=== PATIENT | female | born 1955 | race Two or more races ===

== ENCOUNTER → 2023-03-08 | Outpatient (CLI) | payer OTHER ==
[2023-03-08 09:46] LABS: Albumin 3.7 g/dL (3.4-5.0); Calcium 9.2 mg/dL (8.5-10.1); Potassium 4.4 mmol/L (3.5-5.1); Uric Acid 4.3 mg/dL (2.6-6.0)
[2023-03-08 09:50] LABS: BUN/Creatinine Ratio 23.4 (10.0-20.0); Bilirubin, Total 0.6 mg/dL (0.2-1.0); Total Protein 7.3 g/dL (6.4-8.2)
[2023-03-08 11:42] LABS: Urine Bacteria NONE SEEN /hpf (None Seen); Urine Blood 2+ /uL (Negative); Urine Mucus FEW (None Seen); Urine Specific Gravity 1.025 (1.001-1.035); Urine WBC 40 /hpf (0 - 5)
[2023-03-08 14:38] LABS: Hematocrit 36.3 % (36.0-46.0); Hemoglobin 12.3 g/dL (12.2-16.2); Mean Corpuscular Hemoglobin 31.5 pg (28.0-32.0); Mean Corpuscular Hgb Conc. 33.8 g/dL (32.0-36.0); Mean Corpuscular Volume 93.3 fL (80.0-100.0); Red Blood Cells 3.89 10^6/uL (4.0-5.20); Red Cell Distribution Width 13.9 % (11.8-14.3); White Blood Cell 7.4 10^3/uL (4.4-10.8)
[2023-03-08 14:41] LABS: Eosinophils % (auto) 0.6 % (0.0-7.0); Lymphocytes % (auto) 20.1 % (10.0-50.0); Monocytes % (auto) 8.5 % (0.0-12.0)
[2023-03-08 14:42] LABS: Basophils # (auto) 0.1 10 ^3/uL (0-0.2); Basophils % (auto) 0.8 % (0.0-2.0); Eosinophils # (auto) 0 10 ^3/uL (0-0.8); Lymphocytes # (auto) 1.4 10 ^3/uL (0.4-5.4); Monocytes # (auto) 0.6 10 ^3/uL (0-1.3); Nucleated Red Blood Cells % 0.2 %
== END | disposition home or self-care (01) ==
LOC: LAB 08:50
PROVIDERS: ATTEND Family Medicine
DX: Z12.11 Encounter for screening for malignant neoplasm of colon (principal); Z12.4 Encounter for screening for malignant neoplasm of cervix; Z00.01 Encounter for general adult medical examination with abnormal findings; E55.9 Vitamin D deficiency, unspecified; R74.8 Abnormal levels of other serum enzymes; F33.42 Major depressive disorder, recurrent, in full remission; I10 Essential (primary) hypertension; E88.81 Metabolic syndrome and other insulin resistance
CPT/HCPCS: 36415; 80053; 80061; 81001; 82270; 83036; 84443; 84550; 85025

== ENCOUNTER → 2023-06-06 | Outpatient (CLI) | payer OTHER ==
[2023-06-06 09:39] LABS: Urine Bacteria NONE SEEN /hpf (None Seen); Urine Blood 2+ /uL (Negative); Urine Clarity Clear (Clear); Urine Color Yellow (Yellow); Urine Mucus FEW (None Seen); Urine Protein, UAD Negative (Negative); Urine Specific Gravity 1.019 (1.001-1.035); Urine Urobilinogen Normal (Negative); Urine WBC 6 /hpf (0 - 5)
[2023-06-06 10:36] LABS: Calcium 9.3 mg/dL (8.5-10.1)
[2023-06-06 11:10] LABS: Hemoglobin 15.2 g/dL (12.2-16.2); Mean Corpuscular Hemoglobin 30.7 pg (28.0-32.0); Mean Corpuscular Hgb Conc. 32.3 g/dL (32.0-36.0); Mean Corpuscular Volume 95.2 fL (80.0-100.0); Red Blood Cells 4.94 10^6/uL (4.0-5.20); Red Cell Distribution Width 15.6 % (11.8-14.3); White Blood Cell 4.7 10^3/uL (4.4-10.8)
[2023-06-06 12:03] LABS: Basophils % (auto) 0.5 % (0.0-2.0); Eosinophils # (auto) 0 10 ^3/uL (0-0.8); Eosinophils % (auto) 0.9 % (0.0-7.0); Lymphocytes # (auto) 1.4 10 ^3/uL (0.4-5.4); Lymphocytes % (auto) 46.3 % (10.0-50.0); Monocytes # (auto) 0.2 10 ^3/uL (0-1.3); Monocytes % (auto) 7.7 % (0.0-12.0); Neutrophils # (auto) 1.4 10 ^3/uL (1.6-8.6); Neutrophils % (auto) 44.6 % (37.0-80.0); Nucleated Red Blood Cells % 0.9 %
[2023-06-06 12:04] LABS: Basophils # (auto) 0 10 ^3/uL (0-0.2)
[2023-06-06 12:16] LABS: BUN/Creatinine Ratio 21.3 (10.0-20.0)
[2023-06-06 12:17] LABS: Albumin 3.7 g/dL (3.4-5.0); Bilirubin, Total 0.4 mg/dL (0.2-1.0); Total Protein 7.1 g/dL (6.4-8.2)
[2023-06-06 13:25] LABS: Potassium 5.2 mmol/L (3.5-5.1)
== END | disposition home or self-care (01) ==
LOC: LAB 08:56
PROVIDERS: ATTEND Family Medicine
DX: I10 Essential (primary) hypertension (principal); R31.21 Asymptomatic microscopic hematuria
CPT/HCPCS: 36415; 80053; 80061; 81001; 82728; 83036; 85025; 87086

== ENCOUNTER → 2023-11-25 | Outpatient (CLI) | payer OTHER | END | disposition home or self-care (01) | LOC: LAB 13:30 | PROVIDERS: ATTEND Family Medicine | DX: D48.5 Neoplasm of uncertain behavior of skin (principal); L57.0 Actinic keratosis | CPT/HCPCS: 88302 ==

== ENCOUNTER 2023-12-04 08:12 | Emergency (ER) | payer OTHER ==
[~2023-12-04] VITALS: Ht 152.4 cm; Wt 155.0 kg
[2023-12-04] MEDS ORDERED: cloNIDine HCL 0.1 MG TAB PO ONE (08:30)
[2023-12-04 09:17] VITALS: PULSE 98; RESP 16; TEMP 97.6; O2SAT 99
[2023-12-04 09:34] VITALS: BP 138/68
== END 2023-12-04 10:11 | disposition home or self-care (01) ==
LOC: ER 08:12
DX: I10 Essential (primary) hypertension (principal); E78.5 Hyperlipidemia, unspecified

== ENCOUNTER → 2023-12-05 | Outpatient (CLI) | payer OTHER ==
[2023-12-05 10:16] LABS: Urine Bacteria NONE SEEN /hpf (None Seen); Urine Blood 1+ /uL (Negative); Urine Clarity Clear (Clear); Urine Color Yellow (Yellow); Urine Mucus FEW (None Seen); Urine Protein, UAD TRACE (Negative); Urine Specific Gravity 1.023 (1.001-1.035); Urine Urobilinogen Normal (Negative); Urine WBC 3 /hpf (0 - 5)
[2023-12-05 10:25] LABS: Alanine Aminotransferase 17 U/L (7-40); Albumin 4.3 g/dL (3.2-4.8); Alkaline Phosphatase 105 U/L (46-116); Anion Gap 8 (5-15); Aspartate Aminotransferase 34 U/L (13-40); BUN/Creatinine Ratio 16.2 (10.0-20.0); Blood Urea Nitrogen 12 mg/dL (9-23); Calcium 9.7 mg/dL (8.5-10.1); Carbon Dioxide 25 mmol/L (20-30); Chloride 109 mmol/L (98-107); Glucose 101 mg/dL (74-106); LDL Cholesterol 93 mg/dL (< 100); Potassium 3.7 mmol/L (3.5-5.1); Sodium 142 mmol/L (136-145); Triglycerides 121 mg/dL (< 150)
[2023-12-05 10:26] LABS: Bilirubin, Total 1.2 mg/dL (0.2-1.0); Cholesterol 170 mg/dL (< 200); HDL Cholesterol 56 mg/dL (40-59)
[2023-12-05 13:22] LABS: Hematocrit 32.6 % (36.0-46.0); Hemoglobin 11.5 g/dL (12.2-16.2); Mean Corpuscular Hemoglobin 33.5 pg (28.0-32.0); Mean Corpuscular Volume 95.3 fL (80.0-100.0); Red Blood Cells 3.43 10^6/uL (4.0-5.20); Red Cell Distribution Width 14.9 % (11.8-14.3); White Blood Cell 4.5 10^3/uL (4.4-10.8)
[2023-12-05 13:30] LABS: Lymphocytes % (auto) 41.1 % (10.0-50.0); Monocytes % (auto) 3.6 % (0.0-12.0); Neutrophils % (auto) 53.6 % (37.0-80.0)
[2023-12-05 13:31] LABS: Basophils # (auto) 0 10 ^3/uL (0-0.2); Basophils % (auto) 0.6 % (0.0-2.0); Eosinophils # (auto) 0.1 10 ^3/uL (0-0.8); Eosinophils % (auto) 1.1 % (0.0-7.0); Lymphocytes # (auto) 2.1 10 ^3/uL (0.4-5.4); Monocytes # (auto) 0.2 10 ^3/uL (0-1.3); Neutrophils # (auto) 2.8 10 ^3/uL (1.6-8.6); Nucleated Red Blood Cells % 0.2 %
[2023-12-05 13:32] LABS: Mean Corpuscular Hgb Conc. 35.2 g/dL (32.0-36.0)
== END | disposition home or self-care (01) ==
LOC: LAB 09:11
PROVIDERS: ATTEND Family Medicine
DX: Z00.01 Encounter for general adult medical examination with abnormal findings (principal); Z11.8 Encounter for screening for other infectious and parasitic diseases
CPT/HCPCS: 36415; 80053; 80061; 81001; 82043; 82306; 83036; 84443; 85025

== ENCOUNTER → 2024-04-03 | Outpatient (CLI) | payer OTHER ==
[2024-04-03 08:42] LABS: Urine Bacteria None Seen /hpf (None Seen)
[2024-04-03 08:59] LABS: Urine Blood 2+ /uL (Negative); Urine Clarity Clear (Clear); Urine Color Yellow (Yellow); Urine Mucus FEW (None Seen); Urine Protein, UAD Negative (Negative); Urine Urobilinogen Normal (Negative); Urine WBC 8 /hpf (0 - 5)
[2024-04-03 09:19] LABS: % Iron Saturation 21.9 % (15-50)
[2024-04-04 08:51] LABS: Basophils # (auto) 0 10 ^3/uL (0-0.2); Basophils % (auto) 0.6 % (0.0-2.0); Eosinophils # (auto) 0.1 10 ^3/uL (0-0.8); Eosinophils % (auto) 1.8 % (0.0-7.0); Hematocrit 37.7 % (36.0-46.0); Hemoglobin 13.2 g/dL (12.2-16.2); Lymphocytes # (auto) 2.3 10 ^3/uL (0.4-5.4); Lymphocytes % (auto) 42.8 % (10.0-50.0); Mean Corpuscular Hemoglobin 33.9 pg (28.0-32.0); Mean Corpuscular Volume 96.9 fL (80.0-100.0); Monocytes # (auto) 0.5 10 ^3/uL (0-1.3); Monocytes % (auto) 8.5 % (0.0-12.0); Neutrophils # (auto) 2.5 10 ^3/uL (1.6-8.6); Neutrophils % (auto) 46.3 % (37.0-80.0); Nucleated Red Blood Cells % 0.7 %; Red Blood Cells 3.89 10^6/uL (4.0-5.20); Red Cell Distribution Width 13.7 % (11.8-14.3); White Blood Cell 5.4 10^3/uL (4.4-10.8)
[2024-04-04 09:18] LABS: Alanine Aminotransferase 21 U/L (7-40); Albumin 4.1 g/dL (3.2-4.8); Alkaline Phosphatase 110 U/L (46-116); Anion Gap 9 (5-15); Aspartate Aminotransferase 21 U/L (13-40); BUN/Creatinine Ratio 25.7 (10.0-20.0); Bilirubin, Total 0.4 mg/dL (0.2-1.0); Blood Urea Nitrogen 19 mg/dL (9-23); Carbon Dioxide 28 mmol/L (20-30); Chloride 106 mmol/L (98-107); Glucose 101 mg/dL (74-106); Potassium 4.8 mmol/L (3.5-5.1); Sodium 143 mmol/L (136-145); Total Protein 6.8 g/dL (5.7-8.2)
[2024-04-04 11:36] LABS: Cholesterol 175 mg/dL (< 200); LDL Cholesterol 104 mg/dL (< 100); Triglycerides 115 mg/dL (< 150)
[2024-04-04 11:37] LABS: HDL Cholesterol 53 mg/dL (40-59)
[2024-04-06 12:16] LABS: Creatinine, Urine 41.84 mg/dL (30.0-125.0)
[2024-04-06 12:41] LABS: Body Surface Area 1.75; Creatinine Clearance, Urine 55.95 mL/min (75-115)
== END | disposition home or self-care (01) ==
LOC: LAB 08:29
PROVIDERS: ATTEND Family Medicine
DX: N30.01 Acute cystitis with hematuria (principal); R80.0 Isolated proteinuria; E78.5 Hyperlipidemia, unspecified; E55.9 Vitamin D deficiency, unspecified; R74.8 Abnormal levels of other serum enzymes; D64.9 Anemia, unspecified
CPT/HCPCS: 36415; 80053; 80061; 81001; 82043; 82575; 83036; 83540; 83550

== ENCOUNTER → 2024-09-17 | Outpatient (CLI) | payer OTHER ==
[2024-09-17 09:09] LABS: Alanine Aminotransferase 18 U/L (7-40); Albumin 4.3 g/dL (3.2-4.8); Alkaline Phosphatase 96 U/L (46-116); Anion Gap 7 (5-15); Aspartate Aminotransferase 25 U/L (13-40); BUN/Creatinine Ratio 19.6 (10.0-20.0); Bilirubin, Total 0.8 mg/dL (0.2-1.0); Blood Urea Nitrogen 18 mg/dL (9-23); Calcium 10.4 mg/dL (8.7-10.4); Carbon Dioxide 27 mmol/L (20-31); Chloride 105 mmol/L (98-107); Cholesterol 188 mg/dL (< 200); Glucose 103 mg/dL (74-106); HDL Cholesterol 65 mg/dL (40-59); LDL Cholesterol 99 mg/dL (< 100); Potassium 4.3 mmol/L (3.5-5.1); Sodium 139 mmol/L (136-145); Total Protein 7.2 g/dL (5.7-8.2); Triglycerides 134 mg/dL (< 150)
[2024-09-17 09:44] LABS: Hematocrit 34.4 % (36.0-46.0); Hemoglobin 12.6 g/dL (12.2-16.2); Mean Corpuscular Volume 100.8 fL (80.0-100.0); Platelet Count (auto) 398 10^3/uL (140-450); Red Blood Cells 3.41 10^6/uL (4.0-5.20); Red Cell Distribution Width 14.7 % (11.8-14.3)
[2024-09-17 10:40] LABS: Mean Corpuscular Hgb Conc. 36.6 g/dL (32.0-36.0)
[2024-09-17 10:41] LABS: Band Neutrophils % (manual) 0; Basophils % (manual) 0 (0.0-2.0); Blast Cells 0; Eosinophils % (manual) 0 (0-7); Metamyelocytes % 0; Myelocytes % 0; Promyelocytes % 0; Reactive Lymphocytes 0
[2024-09-17 10:55] LABS: Lymphocytes % (manual) 48 (10.0-50.0); Monocytes % (manual) 8 (0-12); Platelet Estimate Adequate
== END | disposition home or self-care (01) ==
LOC: LAB 07:54
PROVIDERS: ATTEND Nurse Practitioner Family
DX: I70.90 Unspecified atherosclerosis (principal); E78.2 Mixed hyperlipidemia; N18.2 Chronic kidney disease, stage 2 (mild); D63.1 Anemia in chronic kidney disease
CPT/HCPCS: 36415; 80053; 80061; 82043; 83036; 85007; 85027

== ENCOUNTER → 2025-01-29 | Outpatient (CLI) | payer OTHER | END | disposition home or self-care (01) | LOC: LAB 11:12 | PROVIDERS: ATTEND Family Medicine | DX: Z12.11 Encounter for screening for malignant neoplasm of colon (principal); R91.1 Solitary pulmonary nodule; E78.2 Mixed hyperlipidemia; I10 Essential (primary) hypertension; M51.34 Other intervertebral disc degeneration, thoracic region; E78.5 Hyperlipidemia, unspecified | CPT/HCPCS: 82270 ==

== ENCOUNTER → 2025-05-11 | Day surgery (SDC) | payer OTHER ==
[2025-05-09 11:32] LABS: INR 0.98 (0.9-1.15); Partial Thromboplastin Time 23.6 SEC (24.5-34.5); Prothrombin Time 10.4 sec (9.3-11.8)
[2025-05-09 11:36] LABS: Alanine Aminotransferase 21 U/L (7-40); Albumin 4.5 g/dL (3.2-4.8); Alkaline Phosphatase 105 U/L (46-116); Anion Gap 6 (5-15); BUN/Creatinine Ratio 21.1 (10.0-20.0); Bilirubin, Total 0.5 mg/dL (0.2-1.0); Blood Urea Nitrogen 19 mg/dL (9-23); Calcium 10.4 mg/dL (8.7-10.4); Carbon Dioxide 29 mmol/L (20-31); Chloride 103 mmol/L (98-107); Glucose 117 mg/dL (74-106); Potassium 4.8 mmol/L (3.5-5.1); Sodium 138 mmol/L (136-145); Total Protein 7.4 g/dL (5.7-8.2)
[2025-05-09 13:18] LABS: Nucleated Red Blood Cells % 0.3 %
[2025-05-09 13:23] LABS: Hematocrit 40.8 % (36.0-46.0); Hemoglobin 13.3 g/dL (12.2-16.2)
[2025-05-09 13:24] LABS: Mean Corpuscular Hemoglobin 28.8 pg (28.0-32.0); Mean Corpuscular Volume 88.1 fL (80.0-100.0)
[~2025-05-11] VITALS: Ht 157.5 cm; Wt 68.0 kg
[~2025-05-11] MED LIST: ALEN70TA74 PO; FENO160T PO; LISI20TA56 PO
[2025-05-11] MEDS: MIDAZOLAM HCL 2MG/2ML 2ml VIAL (1mg/ml) ONE ×2 (11:17→11:29)
[2025-05-11] MEDS: fentaNYL CITRATE 100 MCG/2 ML VL ONE (11:17)
[2025-05-11 11:37] VITALS: TEMP 97.1
--- NOTE | 2025-05-11 11:38 | DVHNC2 ---
Procedure - PROCEDURE DAY MAY 11, 2025 PERFORMED BY: DR. JUÁREZ REFERRING PROVIDER:DR TURNER PROCEDURE PERFORMED: 1. COLONOSCOPY WITH MODERATE SEDATION 2 COLONOSCOPY WITH COLD BIOPSY PREPROCEDURE DIAGNOSIS: 1. DIARRHEA POSTPROCEDURE DIAGNOSIS: 1. INTERNAL AND EXTERNAL HEMORRHOIDS 2. DIVERTICULOSIS MEDICATIONS USED;7MG OF VERSED AND 100 MCG OF FENTANYL IV INDICATIONS FOR PROCEDURE: THE PATIENT IS A 69-YEAR-OLD FEMALE WHO PRESENTS FOR OUTPATIENT COLONOSCOPY FOR LOOSE STOOLS. SHE HAS HAD LOOSE STOOLS SINCE HER CHOLECYSTECTOMY DETAILS OF THE PROCEDURE: INFORMED CONSENT WAS OBTAINED AFTER RISKS BENEFITS AND ALTERNATIVES WERE DISCUSSED AT LENGTH WITH THE PATIENT. THE PATIENT GAVE CONSENT TO THE PROCEDURES WELL A MEDICATION USED FOR SEDATION. RECTAL EXAMINATION SHOWED INTERNAL HEMORRHOIDS. OLYMPUS VARIABLE TORSION PEDIATRIC CO LONOSCOPE WAS INSERTED INTO THE RECTUM ADVANCE THE CECUM. THE SCOPE WAS THEN WITHDRAWN. THE PREP WAS GOOD WITH ONLY SMALL AMOUNTS OF STOOL. BOWEL PREP SCORE EIGHT WAS NOTED. THERE WERE NO LARGE POLYPS, MASSES, STRICTURES, OR ARTERIOVENOUS MALFORMATION SEEN. SHE HAD MODERATE LEFT-SIDED DIVERTICULOSIS. RETROFLEXION SHOWED INTERNAL HEMORRHOIDS. RANDOM BIOPSIES WERE TAKEN RULE OUT MICROSCOPIC COLITIS COLONOSCOPY START TIME: 1123 A.M. COLONOSCOPY CECUM TIME: 1127 A.M. COLONOSCOPY END TIME: 11:332 A.M. IMPRESSION: 1. INTERNAL HEMORRHOIDS AND EXTERNAL HEMORRHOIDS 2. DIVERTICULOSIS BIOPSIES WERE TAKEN TO RULE OUT MICROSCOPIC COLITIS RECOMMENDATIONS: 1. FOLLOW UP WITH PRIMARY CARE PHYSICIAN 2. CONSIDER CHOLESTYRAMINE 3. REPEAT COLONOSCOPY SLOWLY INDICATED 4. FOLLOW UP IN GI CLINIC FOR PROCEDURE BIOPSY RESULTS 5. CONSIDER MEDICATIONS AND OR IBS AND/OR SIBO I WOULD LIKE TO THANK FOR THE REFERRAL DESMOND JUÁREZ MD May 11, 2025 11:38
[2025-05-11 12:15] VITALS: BP 107/79; PULSE 63; RESP 16; O2SAT 100
== END | disposition home or self-care (01) ==
LOC: GI 09:41
PROVIDERS: ATTEND Specialist
DX: R19.7 Diarrhea, unspecified (principal); K57.30 Diverticulosis of large intestine without perforation or abscess without bleeding; K64.8 Other hemorrhoids; K64.4 Residual hemorrhoidal skin tags; I10 Essential (primary) hypertension; E78.5 Hyperlipidemia, unspecified; K21.9 Gastro-esophageal reflux disease without esophagitis; Z90.49 Acquired absence of other specified parts of digestive tract; Z79.899 Other long term (current) drug therapy
CPT/HCPCS: 36415; 45380; 80053; 85610; 85730; J2250; J3010

== ENCOUNTER 2025-06-20 04:59 | Inpatient (IN) | payer OTHER ==
[~2025-06-20] VITALS: Ht 157.5 cm; Wt 67.5 kg
--- NOTE | 2025-06-20 05:12 | ECG ---
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
--- NOTE | 2025-06-20 05:22 | ED.PDOC ---
HPI Comments 69 year old female presents to the ED with a chief complaint of chest pain onset 1 week. Patient has been experiencing chest pain described as pressure as well as palpitations, nausea, sweats for the past week. This morning, patient noticed chest pain was radiating to LT arm with a numbness sensation. PMHx HTN, HLD. Denies shortness of breath, dizziness, blurry vision, vomiting, diarrhea, fevers, chills. No other symptoms or modifying factors present at this time. Chief Complaint: Chest Pain Time Seen by MD: 05:15 Primary Care Provider: YUE Alfonso Notes: Medications, Allergies Allergies: Coded Allergies: NO KNOWN ALLERGIES (Unverified , 09/23/24) Home Meds Reported Medications Lisinopril (Lisinopril) 40 Mg Tab, 40 MG PO DAILY, TAB 01/09/25 Information Source: Patient Mode of Arrival: Ambulatory Severity: Moderate Timing: Weeks Duration: Since onset Prehospital treatment: None Location: Chest (L) Radiation: Arm (L) Quality: Pressure Onset: At Rest Cardiac Risk Factors: Hyperlipidemia, HTN PE Risk Factors: None History of: None Modifying Factors: Nothing Associated Signs and Symptoms: Palpitations Past Medical History PAST MEDICAL HISTORY: High Lipids, HTN Surgical History: Cholecystectomy 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 History Family History Family History: Reviewed,noncontributory to illness, No family hx of Cancer, No family hx of DM, No family hx of Heart casandra, No family hx of HTN, No family hx ofKidney casandra, No family hx of Liver casandra, No family hx of Lung casandra, No family hx of Stroke Social History Smoker: Non-Smoker Alcohol: Denies ETOH Use Drugs: Denies Drug Use Lives In: Home Constitutional: reports: sweats; denies: chills, diaphoresis, fatigue, fever, malaise, weakness, others EENTM: denies: blurred vision, double vision, ear bleeding, ear discharge, ear drainage, ear pain, ear ringing, eye pain, eye redness, hearing loss, mouth pain, mouth swelling, nasal discharge, nose bleeding, nose congestion, nose pain, photophobia, tearing, throat pain, throat swelling, voice changes, others Respiratory: denies: cough, hemoptysis, orthopnea, SOB at rest, shortness of breath, SOB with excertion, stridor, wheezing, others Cardiovascular: reports: chest pain, palpitations; denies: dizzy spells, diaphoresis, Dyspnea on exertion, edema, irregular heart beat, left arm pain, lightheadedness, PND, syncope, others Gastrointestinal: reports: nausea; denies: abdomen distended, abdominal pain, blood streaked bowels, constipated, diarrhea, dysphagia, difficulty swallowing, hematemesis, melena, poor appetite, poor fluid intake, rectal bleeding, rectal pain, vomiting, others Genitourinary: denies: abnormal vagina bleeding, burning, dyspareunia, dysuria, flank pain, frequency, hematuria, incontinence, pain, , vagina discharge, urgency, others Neurological: reports: numbness (LT arm); denies: dizziness, fainting, headache, left sided numbness, left sided weakness, paresthesia, pre-existing deficit, right sided numbness, right sided weakness, seizure, speech problems, tingling, tremors, weakness, others Musculoskeletal: denies: back pain, gout, joint pain, joint swelling, muscle pain, muscle stiffness, neck pain, others Integumetry: denies: bruises, change in color, change in hair/nails, dryness, laceration, lesions, lumps, rash, wounds, others Allergic/Immunocompromised: denies: Difficulty Healing, Frequent Infections, Hives, Itching, others Hematologic/Lymphatic: denies: anemia, blood clots, easy bleeding, easy bruising, swollen glands, others Endocrine: denies: excessive hunger, excessive sweating, excessive thirst, excessive urination, flushing, intolerance to cold, intolerance to heat, unexplained weight gain, unexplained weight loss, others Psychiatric: denies: anxiety, bipolar disorder, depression, hopeless, panic disorder, schizophrenia, sleepless, suicidal, others All Other Systems: Reviewed and Negative Physical Exam General Appearance: No Apparent Distress, Normal HEENT: Normal ENT Inspection, Pharynx Normal, TMs Normal Neck: Full Range of Motion, Non-Tender, Normal, Normal Inspection Respiratory: Chest Non-Tender, Lungs Clear, No Accessory Muscle Use, No Respiratory Distress, Normal Breath Sounds Cardiovascular: No Edema, No JVD, No Murmur, No Gallop, Normal Peripheral Pulses, Regular Rate/Rhythm Breast Exam: Deferred Gastrointestinal: No Organomegaly, Non Tender, No Pulsatile Mass, Normal Bowel Sounds, Soft Genitalia: Deferred Pelvic: Deferred Rectal: Deferred Extremities: No calf tenderness, Normal capillary refill, Normal inspection, N ormal range of motion, Non-tender, No pedal edema Musculoskeletal : Apperance: Normal Neurologic: Alert, rn womens health II-XII nml as Tested, No Motor Deficits, Normal Affect, Normal Mood, No Sensory Deficits Cerebellar Function: Normal Reflexes: Normal Skin: Dry, Normal Color, Warm Lymphatic: No Adenopathy Was a procedure done? Was a procedure done?: No CP Differential Dx Differential Diagnosis: A-fib, Angina, Electrolyte Disorder, Heart Failure, MN, PAC's, Pulmonary Embolus, V-Fib, V-Tach, Other X-Ray, Labs, Meds, VS Vital Signs Date Time Temp Pulse Resp B/P (MAP) Pulse Ox O2 Delivery O2 Flow Rate FiO2 06/20/25 05:07 86 06/20/25 05:01 98.1 93 16 155/94 100 98.1 Lab Test 06/20/25 05:20 Range/Units White Blood Count Pending Red Blood Count Pending Hemoglobin Pending Hematocrit Pending Mean Corpuscular Volume Pending Mean Corpuscular Hemoglobin Pending Mean Corpuscular Hemoglobin Concent Pending Red Cell Distribution Width Pending Platelet Count Pending Mean Platelet Volume Pending Neutrophils (%) (Auto) Pending Lymphocytes (%) (Auto) Pending Monocytes (%) (Auto) Pending Basophils (%) (Auto) Pending Neutrophils # (Auto) Pending Lymphocytes # (Auto) Pending Monocytes # (Auto) Pending Sodium Level Pending Potassium Level Pending Chloride Level Pending Carbon Dioxide Level Pending Anion Gap Pending Blood Urea Nitrogen Pending Creatinine Pending Glomerular Filtration Rate Calc Pending BUN/Creatinine Ratio Pending Serum Glucose Pending Calcium Level Pending Total Bilirubin Pending Aspartate Amino Transferase (AST) Pending Alanine Aminotransferase (ALT) Pending Alkaline Phosphatase Pending Troponin I High Sensitivity Pending Total Protein Pending Albumin Pending Time of 1ST Reevaluation: 05:45 Reevaluation 1ST: Unchanged Patient Education/Counseling: Diagnosis, Treatment, Prognosis Family Education/Counseling: Diagnosis, Treatment, Prognosis SEPSIS Sepsis Screen Date sepsis recognized/suspect: Jun 20, 2025 Time Sepsis recognized/suspect: 0501 Recent Procedure: No On Antibiotic Therapy: No Respiratory Rate >20: No Heart Rate >90: No Temp<36 C (96.8 F) or >38.3 C: No SBP <90 or MAP <65 mmHG: No New Acute Mental Status Change: No Is the patient on CPAP, BIPAP,: No Physician Orders Complete Blood Count (06/20/25 05:10) Comprehensive Metabolic Panel (06/20/25 05:10) Troponin-I Hs (06/20/25 05:10) Troponin-I Hs (06/20/25 06:10) Troponin-I Hs (06/20/25 08:10) Chest Xray 1 View (06/20/25 05:10) Vital Signs Date Time Temp Pulse Resp B/P (MAP) Pulse Ox O2 Delivery O2 Flow Rate FiO2 06/20/25 05:07 86 06/20/25 05:01 98.1 93 16 155/94 100 98.1 Laboratory Tests Test 06/20/25 05:20 White Blood Count Pending Departure 1 Departure Time of Disposition: 07:00 Impression: Primary Impression: Acute coronary syndrome Disposition: ADMITTED INPATIENT Admit to: Tele Condition: Guarded Comments 69-year-old female with dull pressure-like substernal chest pain and nausea. The patient states that the pain radiates to her left arm. She does have a history of hypertension and hypercholesterolemia. I ordered an aspirin and as needed nitroglycerin. Patient has multiple risk factors including age and hypertension and cholesterol. For with the patient is describing the pain is very suspicious for coronary ischemia. Patient will need to be admitted for further cardiac workup. Critical Care Note Critical Care Time?: Yes (35 min-critical care time only) Critical care comment: Total critical care time: Approximately 36 minutes Due to a high probability of clinically significant, life threatening deterioration, the patient required my highest level of preparedness to intervene emergently and I personally spent this critical care time directly and personally managing the patient. This critical care time included obtaining a history; examining the patient; pulse oximetry; ordering and review of studies; arranging urgent treatment with development of a management plan; evaluation of patient's response to treatment; frequent reassessment; and, discussions with other providers. This critical care time was performed to assess and manage the high probability of imminent, life-threatening deterioration that could result in multi-organ failure. It was exclusive of separately billable procedures and treating other patients. Stability Stability form required: No Heart Score Heart Score: Heart Score Response (Comments) Value History Moderate Suspicious 1 EKG Repolarization Disturb 1 Age >65 2 Risk Factors 1 or 2 risk factors 1 Troponin Normal limit 0 Total 5 I personally scribed for BLOSSOM FERMIN MD ([email or web address]) on 06/20/25 at 05:22. Electronically submitted by Jodi Nunn ([email or web address]). BLOSSOM FERMIN MD Jun 20, 2025 05:22
[2025-06-20 06:01] LABS: Alanine Aminotransferase 24 U/L (7-40); Alkaline Phosphatase 83 U/L (46-116); Anion Gap 10 (5-15); BUN/Creatinine Ratio 15.4 (10.0-20.0); Blood Urea Nitrogen 16 mg/dL (9-23); Calcium 9.8 mg/dL (8.7-10.4); Carbon Dioxide 25 mmol/L (20-31); Chloride 106 mmol/L (98-107); Potassium 3.8 mmol/L (3.5-5.1); Sodium 141 mmol/L (136-145)
[2025-06-20 06:02] LABS: Bilirubin, Total 0.7 mg/dL (0.2-1.0)
[2025-06-20 06:03] LABS: Albumin 4.8 g/dL (3.2-4.8); Glucose 110 mg/dL (74-106)
--- NOTE | 2025-06-20 06:04 | DVH ---
CHEST RADIOGRAPH Indication: chest pain Technique: Single frontal view of the chest was obtained COMPARISON: None FINDINGS: Lines and Tubes: None Lungs: Clear Pleura: No effusion. No pneumothorax. Cardiomediastinal contours: Unremarkable Bones: Unremarkable IMPRESSION: No acute disease.
[2025-06-20 06:22] LABS: Total Protein 7.9 g/dL (5.7-8.2)
[2025-06-20 07:29] VITALS: PULSE 82; RESP 14; O2SAT 99
[2025-06-20] MEDS: NITROGLYCERIN 0.4 MG SL TAB SL ONE (07:53)
[2025-06-20 12:20] LABS: Nucleated Red Blood Cells % 0.3 %
[2025-06-20 12:58] LABS: Hematocrit 40.3 % (36.0-46.0); Hemoglobin 13.3 g/dL (12.2-16.2); Mean Corpuscular Hemoglobin 29.9 pg (28.0-32.0); Mean Corpuscular Volume 90.1 fL (80.0-100.0)
[2025-06-20] MEDS ORDERED: MORPHINE SULFATE INJ 2 MG/ml SYRG IV PRN (14:15)
[2025-06-20] MEDS ORDERED: ACETAMINOPHEN 325 MG TAB PO PRN (14:15)
[2025-06-20] MEDS ORDERED: ONDANSETRON HCL 4 MG/2 ML VIAL IV PRN (14:15)
[2025-06-20] MEDS ORDERED: NITROGLYCERIN 0.4 MG SL TAB SL PRN (14:15)
[2025-06-20] MEDS ORDERED: hydrALAZINE HCL 20 MG/ML VL IV PRN (14:15)
[2025-06-20] MEDS: LISINOPRIL 20 MG TAB PO ONE (16:01)
--- NOTE | 2025-06-20 16:13 | DVHHP2 ---
History of Present Illness Reason for Visit: Chest pain History of Present Illness 69-year-old female presents for evaluation of chest pain. Patient endorses a one-week history of substernal chest pressure radiating to her left arm. She also associates symptoms of diaphoresis, nausea and palpitations. Past Medical History Hypertension and dyslipidemia Past Surgical History Cholecystectomy Family History Noncontributory Smoke: No ALCOHOL: none Drugs: None Lives: with Family Review of Systems Review of Systems Review of systems are currently negative otherwise addressed in HPI. Allergies: Coded Allergies: NO KNOWN ALLERGIES (Unverified , 09/23/24) Medications Current Medications Medications Dose Ordered Sig/Edna Route Start Time Stop Time Status Last Admin Dose Admin Aspirin 81 mg DAILY PO 06/21/25 10:00 Atorvastatin Calcium 10 mg HS PO 06/20/25 22:00 Lisinopril 40 mg DAILY PO 06/21/25 10:00 Hydralazine HCl 10 mg Q6HP PRN IV 06/20/25 14:15 Ondansetron HCl 4 mg Q4HP PRN IV 06/20/25 14:15 Acetaminophen 650 mg Q6HP PRN PO 06/20/25 14:15 Nitroglycerin 0.4 mg Q5MINP PRN SL 06/20/25 14:15 Morphine Sulfate 2 mg Q30M PRN IV 06/20/25 14:15 Exam Vital Signs Vital Signs Date Time Temp Pulse Resp B/P (MAP) Pulse Ox O2 Delivery O2 Flow Rate FiO2 06/20/25 16:01 162/78 06/20/25 14:00 98.4 79 18 97 98.4 06/20/25 07:29 Room Air* 0 21 Exam Gen: 69-year-old female in mild distress Skin: Warm, dry, normal color and texture, no rash. HEENT: Normocephalic atraumatic, mucous membranes moist and pink. Neck: Cervical and supraclavicular nodes normal without enlargement, trachea is midline, thyroid gland is normal without masses. Pulmonary: Clear to auscultation and percussion bilaterally. Cardiac: Regular rate and rhythm. No murmur Abdomen: Soft, nontender, nondistended, bowel sounds present all 4 quadrants, no guarding, no rigidity, no organomegaly. Extremities: No cyanosis, clubbing, no edema Neuro: Cranial nerves II through XII grossly intact, normal affect and speech, no focal motor deficits. Labs/Xrays ORDERING PHYSICIAN: BLOSSOM FERMIN MD PROCEDURE(s): CXR1 - CHEST XRAY 1 VIEW REASON: chest pain ORDER NUMBER(s): [id number], ACCESSION NUMBER(s): [id number] CHEST RADIOGRAPH Indication: chest pain Technique: Single frontal view of the chest was obtained COMPARISON: None FINDINGS: Lines and Tubes: None Lungs: Clear Pleura: No effusion. No pneumothorax. Cardiomediastinal contours: Unremarkable Bones: Unremarkable IMPRESSION: No acute disease. Labs Test 06/20/25 10:16 06/20/25 08:11 06/20/25 05:20 Range/Units White Blood Count 8.1 4.4-10.8 10^3/uL Red Blood Count 4.47 4.0-5.20 10^6/uL Hemoglobin 13.3 12.2-16.2 g/dL Hematocrit 40.3 36.0-46.0 % Mean Corpuscular Volume 90.1 80.0-100.0 fL Mean Corpuscular Hemoglobin 29.9 28.0-32.0 pg Mean Corpuscular Hemoglobin Concent 33.1 32.0-36.0 g/dL Red Cell Distribution Width 15.3 H 11.8-14.3 % Platelet Count 380 140-450 10^3/uL Mean Platelet Volume 8.3 6.9-10.8 fL Neutrophils (%) (Auto) 69.9 37.0-80.0 % Lymphocytes (%) (Auto) 22.7 10.0-50.0 % Monocytes (%) (Auto) 7.0 0.0-12.0 % Eosinophils (%) (Auto) 0.0 0.0-7.0 % Basophils (%) (Auto) 0.4 0.0-2.0 % Neutrophils # (Auto) 4.8 1.6-8.6 10 ^3/uL Lymphocytes # (Auto) 1.6 0.4-5.4 10 ^3/uL Monocytes # (Auto) 0.5 0-1.3 10 ^3/uL Eosinophils # (Auto) 0 0-0.8 10 ^3/uL Basophils # (Auto) 0 0-0.2 10 ^3/uL Nucleated Red Blood Cells 0.3 % Troponin I High Sensitivity < 3 L </=34 ng/L Sodium Level 141 136-145 mmol/L Potassium Level 3.8 3.5-5.1 mmol/L Chloride Level 106 98-107 mmol/L Carbon Dioxide Level 25 20-31 mmol/L Anion Gap 10 5-15 Blood Urea Nitrogen 16 9-23 mg/dL Creatinine 1.04 H 0.550-1.02 mg/dL Glomerular Filtration Rate Calc 57 >90 mL/min BUN/Creatinine Ratio 15.4 10.0-20.0 Serum Glucose 110 H 74-106 mg/dL Calcium Level 9.8 8.7-10.4 mg/dL Total Bilirubin 0.7 0.2-1.0 mg/dL Aspartate Amino Transferase (AST) 31 13-40 U/L Alanine Aminotransferase (ALT) 24 7-40 U/L Alkaline Phosphatase 83 46-116 U/L Total Protein 7.9 5.7-8.2 g/dL Albumin 4.8 3.2-4.8 g/dL SEPSIS Sepsis Screen Date sepsis recognized/suspect: Jun 20, 2025 Time Sepsis recognized/suspect: 728 Recent Procedure: No On Antibiotic Therapy: No Respiratory Rate >20: No Heart Rate >90: No Temp<36 C (96.8 F) or >38.3 C: No SBP <90 or MAP <65 mmHG: No New Acute Mental Status Change: No Is the patient on CPAP, BIPAP,: No Physician Orders Aspirin Tablet (06/21/25 10:00) Atorvastatin (Lipitor) (06/20/25 22:00) Lisinopril Tablet (Zestril Tablet) (06/21/25 10:00) Basic Metabolic Panel (06/21/25 04:00) Admit (06/20/25 14:10) Ondansetron Hcl (Zofran) (06/20/25 14:15) Cardiac Diet-2gna,Lofat,Lochol (06/20/25 Dinner) Echo 2d Mode Cardiac Dop (06/20/25 14:10) Condition: Fair (06/20/25 14:10) Acetaminophen Tablet (Tylenol Tablet) (06/20/25 14:15) Bedrest With Bathroom Privileg (06/20/25 14:10) Nitroglycerin Sublingual (Ntrostat Subli (06/20/25 14:15) Morphine Sulfate Injection (06/20/25 14:15) Stat Ekg For Chest Pain (06/20/25 14:10) Notify Of Changes From Base (06/20/25 14:10) Recordist For 24 Hours (06/20/25 14:10) Emergency Dysrhythmia Protocol (06/20/25 14:10) Rhythm Strips Once Every Shift (06/20/25 14:10) Oxygen By Nasal Cannula (06/20/25 14:10) Hydralazine Injection (Apresoline Inject (06/20/25 14:15) Vital Signs Date Time Temp Pulse Resp B/P (MAP) Pulse Ox O2 Delivery O2 Flow Rate FiO2 06/20/25 16:01 162/78 06/20/25 14:00 98.4 79 18 180/77 (111) 97 98.4 06/20/25 09:45 98.4 75 15 151/70 (97) 100 98.4 Laboratory Tests Test 06/20/25 10:16 White Blood Count 8.1 10^3/uL (4.4-10.8) Medications Medications Dose Ordered Sig/Edna Route Start Time Stop Time Status Last Admin Dose Admin Aspirin 162 mg ONCE ONCE PO 06/20/25 05:30 06/20/25 05:31 DC 06/20/25 08:01 162 MG Lisinopril 40 mg ONCE ONCE PO 06/20/25 14:15 06/20/25 15:00 DC 06/20/25 16:01 40 MG Assessment/Plan Assessment/Plan Assessment Chest pain rule out ACS Accelerated hypertension Plan Admit the patient to telemetry to the hospitalist Echocardiogram pending As needed antihypertensives Resume home medications Continue treatment per orders. Plan discussed with: Patient My Orders Orders - ELSI THAKUR Procedure Category Date Status Time Aspirin Tablet PHA 06/21/25 In Process 10:00 Atorvastatin (Lipitor) PHA 06/20/25 In Process 22:00 Lisinopril Tablet PHA 06/21/25 In Process (Zestril Tablet) 10:00 Basic Metabolic Panel LAB 06/21/25 Verified 04:00 Admit ADMIT 06/20/25 Transmitted 14:10 Ondansetron Hcl PHA 06/20/25 In Process (Zofran) 14:15 Cardiac DIET 06/20/25 Transmitted Diet-2gna,Lofat,Lochol Dinner Echo 2d Mode Cardiac US 06/20/25 Logged DOP 14:10 Condition: Fair [facility] 06/20/25 In Process 14:10 Acetaminophen Tablet [facility] 06/20/25 In Process (Tylenol Tablet) 14:15 Bedrest With Bathroom [facility] 06/20/25 In Process Privileg 14:10 Nitroglycerin [facility] 06/20/25 In Process Sublingual (Ntrostat 14:15 Morphine Sulfate [facility] 06/20/25 In Process Injection 14:15 Stat Ekg For Chest [facility] 06/20/25 In Process Pain 14:10 Notify Md Of Changes [facility] 06/20/25 In Process From Base 14:10 Recordist For [facility] 06/20/25 In Process 24 Hours 14:10 Emergency Dysrhythmia [facility] 06/20/25 In Process Protocol 14:10 Rhythm Strips Once [facility] 06/20/25 In Process Every Shift 14:10 Oxygen By Nasal RT 06/20/25 Transmitted Cannula 14:10 Hydralazine Injection [facility] 06/20/25 In Process (Apresoline Inject 14:15 Date of Service: Jun 20, 2025 Billing Provider: ELSI THAKUR Common Visit Codes: [id number] INP/OBS CARE (HIGH) ELSI THAKUR Jun 20, 2025 16:13
[2025-06-20 16:27] LABS: Triglycerides 80 mg/dL (< 150)
[2025-06-20 16:30] LABS: Cholesterol 162 mg/dL (< 200)
[2025-06-20 16:36] LABS: HDL Cholesterol 70 mg/dL (40-59)
[2025-06-20 16:47] VITALS: BP 162/78; PULSE 88; RESP 15; TEMP 97.9; O2SAT 97
[2025-06-20 21:00] VITALS: BP 145/77; PULSE 84; RESP 16; TEMP 97.3; O2SAT 95
[2025-06-20] MEDS: ATORVASTATIN 20 MG TAB PO SCH (21:35)
[2025-06-20 23:07] VITALS: BP 135/77; PULSE 76; RESP 17; TEMP 98.1; O2SAT 96
[2025-06-21] VITALS (8 sets, daily range): BP systolic 129–143; BP diastolic 71–82; PULSE 75–84; RESP 17–20; TEMP 97.5–98.1; O2SAT 96–99
[2025-06-21 08:43] LABS: Chloride 106 mmol/L (98-107); Sodium 137 mmol/L (136-145)
[2025-06-21 08:45] LABS: Anion Gap 7 (5-15); Calcium 9.5 mg/dL (8.7-10.4); Carbon Dioxide 24 mmol/L (20-31)
[2025-06-21 08:50] LABS: BUN/Creatinine Ratio 25.6 (10.0-20.0); Blood Urea Nitrogen 21 mg/dL (9-23); Glucose 104 mg/dL (74-106)
[2025-06-21 09:04] LABS: Potassium 7.5 mmol/L (3.5-5.1)
[2025-06-21] MEDS ORDERED: LISINOPRIL 20 MG TAB PO SCH (10:00)
[2025-06-21 13:09] LABS: Urine Protein, UAD Negative (Negative)
--- NOTE | 2025-06-21 14:03 | ECG ---
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
[2025-06-21] MEDS ORDERED: PANT40TA2 PO (15:25)
[2025-06-21] MEDS ORDERED: CALC600C PO (15:25)
--- NOTE | 2025-06-21 16:45 | DVHPNRES ---
Progress Note Objective vital signs Vital Sign Date Time Temp Pulse Resp B/P (MAP) Pulse Ox O2 Delivery O2 Flow Rate FiO2 06/21/25 16:11 97.5 84 20 99 06/21/25 13:00 138/71 (93) 06/21/25 07:40 Room Air* 0 21 Total Intake and Output 06/20/25 06/20/25 06/21/25 15:00 23:00 07:00 Intake Total 0 ml Balance 0 ml medications Current Medications Medications Dose Ordered Sig/Edna Route Start Time Stop Time Status Last Admin Dose Admin Aspirin 81 mg DAILY PO 06/21/25 10:00 06/21/25 09:40 81 MG Atorvastatin Calcium 10 mg HS PO 06/20/25 22:00 06/20/25 21:35 10 MG Acetaminophen 650 mg Q6HP PRN PO 06/20/25 14:15 Nitroglycerin 0.4 mg Q5MINP PRN SL 06/20/25 14:15 Morphine Sulfate 2 mg Q30M PRN IV 06/20/25 14:15 laboratory and microbiology Laboratory Tests 06/21/25 11:22 06/21/25 08:23 06/20/25 10:16 Test 06/21/25 08:23 Range/Units Serum Glucose 104 74-106 mg/dL My Orders My Orders Orders - LUIS SMITH RESIDENT Procedure Category Date Status Time Communication Order ORDERS 06/21/25 Transmitted 10:10 Discharge DISCHARGE 06/21/25 Transmitted 15:22 LUIS SMITH RESIDENT Jun 21, 2025 16:45
--- NOTE | 2025-06-21 18:33 | DVHDSRES ---
Discharge Summary Date of Admission Resident Creating Document: LUIS SMITH RESIDENT Jun 20, 2025 at 14:10 Date of Discharge: Jun 21, 2025 Admitting Diagnosis Chest pain/ Epigastric pain likely secondary to GERD/gastritis Labs/Diagnostic Data: Laboratory Results Test 06/21/25 12:30 06/21/25 11:22 06/21/25 08:23 06/20/25 10:16 Urine Color Colorless (Yellow) Urine Clarity Clear (Clear) Urine pH 6.5 (5.0-9.0) Urine Specific [place] 1.003 (1.001-1.035) Urine Protein Negative (Negative) Urine Ketones Negative (Negative) Urine Blood 1+ /uL (Negative) Urine Nitrite Negative (Negative) Urine Bilirubin Negative (Negative) Urine Urobilinogen Normal mg/dL (Negative) Urine Leukocyte Esterase Negative /uL (Negative) Urine RBC 1 /hpf (0 - 4) Urine Microscopic WBC < 1 /HPF (0-5) Urine Squamous Epithelial Cells Few /hpf (<5) Urine Bacteria Few /hpf (None Seen) Urine Glucose Normal mg/dL (Normal) Potassium Level 4.4 mmol/L (3.5-5.1) Sodium Level 137 mmol/L (136-145) Chloride Level 106 mmol/L (98-107) Carbon Dioxide Level 24 mmol/L (20-31) Anion Gap 7 (5-15) Blood Urea Nitrogen 21 mg/dL (9-23) Creatinine 0.82 mg/dL (0.550-1.02) Glomerular Filtration Rate Calc 76 mL/min (>90) BUN/Creatinine Ratio 25.6 (10.0-20.0) Serum Glucose 104 mg/dL (74-106) Calcium Level 9.5 mg/dL (8.7-10.4) White Blood Count 8.1 10^3/uL (4.4-10.8) Red Blood Count 4.47 10^6/uL (4.0-5.20) Hemoglobin 13.3 g/dL (12.2-16.2) Hematocrit 40.3 % (36.0-46.0) Mean Corpuscular Volume 90.1 fL (80.0-100.0) Mean Corpuscular Hemoglobin 29.9 pg (28.0-32.0) Mean Corpuscular Hemoglobin Concent 33.1 g/dL (32.0-36.0) Red Cell Distribution Width 15.3 % (11.8-14.3) Platelet Count 380 10^3/uL (140-450) Mean Platelet Volume 8.3 fL (6.9-10.8) Neutrophils (%) (Auto) 69.9 % (37.0-80.0) Lymphocytes (%) (Auto) 22.7 % (10.0-50.0) Monocytes (%) (Auto) 7.0 % (0.0-12.0) Eosinophils (%) (Auto) 0.0 % (0.0-7.0) Basophils (%) (Auto) 0.4 % (0.0-2.0) Neutrophils # (Auto) 4.8 10 ^3/uL (1.6-8.6) Lymphocytes # (Auto) 1.6 10 ^3/uL (0.4-5.4) Monocytes # (Auto) 0.5 10 ^3/uL (0-1.3) Eosinophils # (Auto) 0 10 ^3/uL (0-0.8) Basophils # (Auto) 0 10 ^3/uL (0-0.2) Nucleated Red Blood Cells 0.3 % Test 06/20/25 08:11 06/20/25 05:20 Troponin I High Sensitivity < 3 ng/L (</=34) Total Bilirubin 0.7 mg/dL (0.2-1.0) Aspartate Amino Transferase (AST) 31 U/L (13-40) Alanine Aminotransferase (ALT) 24 U/L (7-40) Alkaline Phosphatase 83 U/L (46-116) Total Protein 7.9 g/dL (5.7-8.2) Albumin 4.8 g/dL (3.2-4.8) Triglycerides Level 80 mg/dL (< 150) Cholesterol Level 162 mg/dL (< 200) LDL Cholesterol 83 mg/dL (< 100) HDL Cholesterol 70 mg/dL (40-59) Thyroid Stimulating Hormone (TSH) 4.10 uIU/mL (0.55-4.78) Other Laboratory Tests 06/21/25 11:22 06/21/25 08:23 06/20/25 10:16 Brief Hx & Hospital Course: A 69-year-old female presented with a one-week history of substernal chest pressure radiating to her left arm, accompanied by diaphoresis, nausea, and palpitations, raising concern for acute coronary syndrome (ACS). Initial labswere normal, troponisn neg, but the next day CMP showed hyperkalemia (K 7.5), but this was later attributed to hemolysis, with repeat labs showing normal potassium levels. EKG was unremarkable, and echocardiogram revealed concentric left ventricular hypertrophy (LVH), mild dilation of the sinuses of Valsalva, and mild left atrial enlargement, with preserved ejection fraction (EF 60%). During her hospital stay, the patient reported that the pain was more epigastric and resembled previous gastritis episodes, improving with GERD treatment. She was discharged with GERD medications and advised to follow up with her primary care physician. Gen: 69-year-old female in mild distress Skin: Warm, dry, normal color and texture, no rash. HEENT: Normocephalic atraumatic, mucous membranes moist and pink. Neck: Cervical and supraclavicular nodes normal without enlargement, trachea is midline, thyroid gland is normal without masses. Pulmonary: Clear to auscultation and percussion bilaterally. Cardiac: Regular rate and rhythm. No murmur Abdomen: Soft, nontender, nondistended, bowel sounds present all 4 quadrants, no guarding, no rigidity, no organomegaly. Extremities: No cyanosis, clubbing, no edema Neuro: Cranial nerves II through XII grossly intact, normal affect and speech, no focal motor deficits. Case discussed with Dr Tolbert Operations or Procedures EXAM: Two-dimensional and M-mode echocardiogram with Doppler and color Doppler. Blood Pressure: 138/77 mmHg INDICATION Chest Pain RISK FACTORS Height: 5'2", Weight: 148 DIMENSIONS LVDd 4.0 (3.8-5.7cm) LA (2D) 3.1 (1.9-4.0cm) Aortic Root 2.9 (2.0- 3.7cm) LVDs 2.3 (2.5-4.0cm) LA (MM) (1.9-4.0cm) Aortic Cusp Exc 1.7 (1.5- 2.0cm) EF (%) 74.0 (55-70%) Rt. Atrium 2.7 (1.9-4.0cm) Asc. Aorta 3.0 cm IVSd 0.9 (0.7-1.1cm) RV (D) (1.8-2.4cm) Mitral Valve Mitral Mitral Stenosis E wave 0.57m/s MV Mean GR. mmHg A wave 0.74m/s MV Peak GR. mmHg E/A ratio 0.8 2D MVA cm2 DECEL Time 325ms PRESS 1/2 Time ms Aortic Valve Aortic Valve Aortic Stenosis V1 1.27m/s AO Mean GR. 5mmHg V2 1.55m/s AO Peak GR. 10mmHg LVOT Diameter 2.0 (1.8-2.4cm) Doppler ROSI 2.57cm2 Pulmonic Valve V2 0.84m/s Other Information Quality : Technically Limited Rhythm : Technically limited study due to body habitus. Conclusion Technically good study. Sinus rhythm. Concentric LVH with mild dilation of the sinuses of Valsalva mild left atrial enlargement. EF of 60%. Normal LV function. RV function is normal. Mild TR. No pericardial effusion masses or vegetations. Condition at Discharge: Stable Final Diagnosis/Problems List Chest pain/ Epigastric pain likely secondary to GERD/gastritis Accelerated hypertension Concentric left ventricular hypertrophy (LVH) Mild dilation of the sinuses of Valsalva Mild left atrial enlargement Discharge Disposition: Home Discharge Instruct/Medications Diet: Cardiac 2g Na,low cholest Activity: No Restrictions, As Tolerated Follow Up/Referral: dc clinic Medications: see prescription Scheduled Alendronate Sodium (Alendronate Sodium), Unknown Dose PO Q7D, (Reported) Calcium Carbonate (Antacid) (Maalox), 600 MG PO BID Fenofibrate (Fenofibrate), 160 MG PO QPM, (Reported) Lisinopril (Lisinopril), 10 MG PO DAILY, (Reported) Pantoprazole Sodium Sesquihydr (Protonix), 40 MG PO DAILY Discharge Statement: "Patient was advised to return to the ER or call 911 if any headaches, dizziness, shortness of breath, chest pain, abdominal pain, bleeding, fevers, or worsening of medical condition. Patient was counseled about treatment plan, medications, possible side effects, patientverbalized understanding. All questions were answered to the best of my ability. This discharge took greater then 30 minutes in planning, reviewing documentation, counseling the patient, and discussing with other team members." ASSESSMENT ASSESSMENT Assessment Chest Pain likely secondary to GERD LUIS SMITH RESIDENT Jun 21, 2025 18:33
--- NOTE | 2025-06-22 14:28 | DVHSR ---
APPROVED REPORT EXAM: Two-dimensional and M-mode echocardiogram with Doppler and color Doppler. Blood Pressure: 138/77 mmHg INDICATION Chest Pain RISK FACTORS Height: 5'2", Weight: 148 DIMENSIONS LVDd4.0 (3.8-5.7cm)LA (2D)3.1 (1.9-4.0cm)Aortic Root2.9 (2.0-3.7cm) LVDs2.3 (2.5-4.0cm)LA (MM) (1.9-4.0cm)Aortic Cusp Exc1.7 (1.5-2.0cm) EF (%) 74.0 (55-70%)Rt. Atrium2.7 (1.9-4.0cm)Asc. Aorta3.0 cm IVSd0.9 (0.7-1.1cm)RV (D) (1.8-2.4cm) Mitral Valve MitralMitral Stenosis E wave0.57m/sMV Mean GR.mmHg A wave0.74m/sMV Peak GR.mmHg E/A ratio0.82D MVAcm2 DECEL [id number] 1/2 Tim[place] Aortic Valve Aortic ValveAortic Stenosis V11.27m/Donny Mean GR.5mmHg V21.55m/Donny Peak GR.10mmHg LVOT Diameter2.0 (1.8-2.4cm)Doppler AVA2.57cm2 Pulmonic Valve V20.84m/s Other Information Quality : Technically LimitedRhythm : Technically limited study due to body habitus. Conclusion Technically good study. Sinus rhythm. Concentric LVH with mild dilation of the sinuses of Valsalva mild left atrial enlargement. EF of 60%. Normal LV function. RV function is normal. Mild TR. No pericardial effusion masses or vegetations.
== END 2025-06-21 17:13 | disposition home or self-care (01) | DRG 392 ==
LOC: ER 04:59 → OVERFLOW 14:10 → EDUNIT# 14:10 → TELE-CENTR 23:07
PROVIDERS: ADMIT Student in an Organized Health Care Education/Training Program; ATTEND Student in an Organized Health Care Education/Training Program
DX: K21.9 Gastro-esophageal reflux disease without esophagitis (principal); I10 Essential (primary) hypertension; E78.5 Hyperlipidemia, unspecified; K29.70 Gastritis, unspecified, without bleeding; Z90.49 Acquired absence of other specified parts of digestive tract
CPT/HCPCS: 36415; 71045; 80048; 80053; 80061; 81001; 84132; 84443; 84484; 85025; 93005; 93306; 99291; G0378

== ENCOUNTER 2025-09-11 09:02 | Outpatient (CLI) | payer OTHER ==
[~2025-09-11 09:02] MED LIST changes: +CALC600C PO; +PANT40TA2 PO
[2025-09-11 10:23] LABS: Anion Gap 9.0 (5-15); Carbon Dioxide 29.0 mmol/L (20-31); Chloride 103.0 mmol/L (98-107); Sodium 141.0 mmol/L (136-145)
[2025-09-11 10:24] LABS: Calcium 9.9 mg/dL (8.7-10.4)
[2025-09-11 10:29] LABS: Albumin 4.3 g/dL (3.2-4.8); BUN/Creatinine Ratio 29.4 (10.0-20.0); Glucose 93.0 mg/dL (74-106); Triglycerides 100.0 mg/dL (< 150)
[2025-09-11 10:31] LABS: Cholesterol 187.0 mg/dL (< 200)
[2025-09-11 11:00] LABS: Nucleated Red Blood Cells % 0.2 %
[2025-09-11 11:02] LABS: Hematocrit 40.5 % (36.0-46.0); Hemoglobin 14.1 g/dL (12.2-16.2); Mean Corpuscular Hemoglobin 31.0 pg (28.0-32.0); Mean Corpuscular Volume 88.9 fL (80.0-100.0)
[2025-09-11 11:38] LABS: Blood Urea Nitrogen 25.0 mg/dL (9-23); HDL Cholesterol 65.0 mg/dL (40-59); Potassium 5.6 mmol/L (3.5-5.1)
== END 2025-09-11 17:00 | disposition home or self-care (01) ==
LOC: LAB 09:02
PROVIDERS: ATTEND Family Medicine
DX: N18.2 Chronic kidney disease, stage 2 (mild) (principal); E78.2 Mixed hyperlipidemia; E88.819 Insulin resistance, unspecified
CPT/HCPCS: 36415; 80061; 80069; 82043; 85025

== ENCOUNTER 2025-09-18 10:54 | Outpatient (CLI) | payer OTHER | END 2025-09-18 17:00 | disposition home or self-care (01) | LOC: LAB 10:54 | PROVIDERS: ATTEND Family Medicine | DX: N18.2 Chronic kidney disease, stage 2 (mild) (principal); E78.2 Mixed hyperlipidemia; E88.819 Insulin resistance, unspecified | CPT/HCPCS: 82270 ==